=== PATIENT | female | born 1980 | race Caucasian/White ===

== ENCOUNTER 2017-01-31 09:50 | Day surgery (SDC) | payer BC ==
--- NOTE | ~2017-01-31 | EGD ---
EGD REPORT [facility] [address] [id number] NAME: JULEE SANCHEZ : [birth year] STATUS : REG [facility]#: [id number] AGE: 36 ADM/REG DATE : 01/31/17 MR#: [id number] REPORT SERV DATE: 01/31/17 DICTATED BY: ANJUM CANO DATE: 01/31/17 REPORT STATUS : Draft TRANSCRIBED BY: [facility] DATE: 01/31/17 [facility] Patient Name: Julee Sanchez Date of : 1980 Attending MD: ANJUM CANO MD Procedure Date No Time: 01/31/2017 Procedure: Upper GI endoscopy Indications: Dysphagia, Gastro-esophageal reflux disease Referring MD: Khushi Mittal MD Medicines: Propofol per Anesthesia Complications: Hypoxia, Treated by Anesthesia, With resolution of the hypoxia Procedure: Pre-Anesthesia Assessment: - ASA Grade Assessment: III - A patient with severe systemic disease. After obtaining informed consent, the endoscope was passed under direct vision. Throughout the procedure, the patient's blood pressure, pulse, and oxygen saturations were monitored continuously. The GIF [id number] was introduced through the mouth, and advanced to the third part of duodenum. The upper GI endoscopy was accomplished without difficulty. The patient tolerated the procedure well. Findings: LA Grade A (one or more mucosal breaks less than 5 mm, not extending between tops of 2 mucosal folds) esophagitis was found in the entire esophagus. A benign-appearing, intrinsic mild stenosis was found in the upper third of the esophagus and was traversed. A guidewire was placed and the scope was withdrawn. Dilation was performed with a Savary dilator with mild resistance at 60 Fr. The esophagus looked satisfactory post dilation A small hiatus hernia was present. Seen on retroflexion, done prior to dilation Diffuse mild inflammation characterized by congestion (edema) and erythema was found in the entire examined stomach. Biopsies were taken with a cold forceps for Helicobacter pylori testing. Diffuse moderate inflammation characterized by congestion (edema), erosions and erythema was found in the duodenal bulb and in the second part of the duodenum. Biopsies were taken with a cold forceps for evaluation of celiac disease. And giardia, whipple's disease, and enteritis The 3rd part of the duodenum was normal. Biopsies were taken with a cold forceps for evaluation of celiac disease. And giardia, whipple's disease, and enteritis EGD REPORT [address] [place]. [address] NAME: JULEE SANCHEZ : [birth year] STATUS : REG [facility] [place] PAT#: [id number] AGE: 36 ADM/REG DATE : 01/31/17 MR#: [id number] REPORT SERV DATE: 01/31/17 DICTATED BY: ANJUM CANO DATE: 01/31/17 REPORT STATUS : Draft TRANSCRIBED BY: [employer] DATE: 01/31/17 Impression: - LA Grade A esophagitis. - Benign-appearing esophageal stricture. Dilated. - Hiatus hernia. - Gastritis. Biopsied. - Duodenitis. Biopsied. - Normal 3rd part of the duodenum. Biopsied. Recommendation: - Patient has a contact number available for emergencies. The signs and symptoms of potential delayed complications were discussed with the patient. Return to normal activities tomorrow. Written discharge instructions were provided to the patient. - diet is clear liquid today, full liquid tomorrow, soft mushy food the next day, and resume usual diet the day after that. - Continue present medications. - Use Protonix (pantoprazole) 40 mg PO daily. - take 30-60 minutes before breakfast or supper - Use sucralfate suspension 1 gram PO QID. - Return to my office as previously scheduled. - Discharge patient to home. Procedure Code(s): --- Professional --- 70563, Esophagogastroduodenoscopy, flexible, transoral; with insertion of guide wire followed by passage of dilator(s) through esophagus over guide wire 03624, Esophagogastroduodenoscopy, flexible, transoral; with biopsy, single or multiple Diagnosis Code(s): --- Professional --- K20.9, Esophagitis, unspecified K22.2, Esophageal obstruction K44.9, Diaphragmatic hernia without obstruction or gangrene K29.70, Gastritis, unspecified, without bleeding K29.80, Duodenitis without bleeding R13.10, Dysphagia, unspecified K21.9, Gastro-esophageal reflux disease without esophagitis R09.01, Asphyxia CPT copyright 2013 [employer]. All rights reserved. The codes documented in this report are preliminary and upon arch cushion skiving machine operator review may be revised to meet current compliance requirements. EGD REPORT [facility] [address] [address] NAME: JULEE SANCHEZ : [birth year] STATUS : REG [facility] [place] PAT#: [id number] AGE: 36 ADM/REG DATE : 01/31/17 MR#: [id number] REPORT SERV DATE: 01/31/17 DICTATED BY: ANJUM CANO DATE: 01/31/17 REPORT STATUS : Draft TRANSCRIBED BY: [employer] DATE: 01/31/17 Anjum Cano MD ANJUM CANO MD 01/31/2017 1:37 PM This report has been signed electronically. Number of Addenda: 0 Note Initiated On: 01/31/2017 12:15 PM Scope Withdrawal Time 0 hours 0 minutes 0 seconds [address] [facility] [place] [address]
[~2017-01-31 09:50] MED LIST: ADVAIR115P INH; CYMBALTA60 PO; GLUCPH PO; LOTE10 PO; METHOC750B PO; PR25 PO; SINGULAIR1 PO; T3 PO; TOPXL50 PO; TRAZ100 PO; [UNRECOGNIZED DRUG - OTHER] INH
== END 2017-01-31 23:59 | disposition home health service (06) ==
LOC: DMU 09:50
PROVIDERS: Internal Medicine Gastroenterology
PROC: 0DB98ZX Excision of Duodenum, Via Natural or Artificial Opening Endoscopic, Diagnostic (ICD-10-PCS; 2017-01-31)
PROC: 0D758ZZ Dilation of Esophagus, Via Natural or Artificial Opening Endoscopic (ICD-10-PCS; principal; 2017-01-31 11:00)
PROC: 0DB68ZX Excision of Stomach, Via Natural or Artificial Opening Endoscopic, Diagnostic (ICD-10-PCS; 2017-01-31 11:00)
DX: K22.2 Esophageal obstruction (principal); K44.9 Diaphragmatic hernia without obstruction or gangrene; K21.0 Gastro-esophageal reflux disease with esophagitis; K29.70 Gastritis, unspecified, without bleeding; K29.80 Duodenitis without bleeding; I10 Essential (primary) hypertension; G47.33 Obstructive sleep apnea (adult) (pediatric); R56.9 Unspecified convulsions; F41.9 Anxiety disorder, unspecified; F32.9 Major depressive disorder, single episode, unspecified; Z88.8 Allergy status to other drugs, medicaments and biological substances; Z79.899 Other long term (current) drug therapy; J45.909 Unspecified asthma, uncomplicated; Z90.49 Acquired absence of other specified parts of digestive tract; Z90.710 Acquired absence of both cervix and uterus; Z98.51 Tubal ligation status; Z98.890 Other specified postprocedural states
CPT/HCPCS: 82962; 88305; 94640; A9270-GY; J0330; J2405; J3010

== ENCOUNTER 2017-02-01 16:43 | Emergency (ER) | payer BC ==
[2017-02-01 16:00] LABS: BASOPHILS 0.2 %; BASOPHILS ABSOLUTE 0.02 10/3/uL (0.0-0.16); EOSINOPHILS 3.3 %; EOSINOPHILS ABSOLUTE 0.29 10/3/uL (0.0-0.53); IMMATURE GRANULOCYTES 0.2 %; IMMATURE GRANULOCYTES ABSOLUTE 0.02 10/3/uL (0.0-0.11); LYMPHOCYTES ABSOLUTE 1.95 10/3/uL (0.67-4.30); MEAN CORPUS HGB CONC 32.9 g/dL (32.0-36.0); MEAN CORPUSCULAR HEMOGLOB 29.3 pg (26.0-34.0); MEAN CORPUSCULAR VOLUME 88.9 fL (80-100); MEAN PLATELET VOLUME 9.8 fL (9.2-13.0); MONOCYTES 5.1 %; MONOCYTES ABSOLUTE 0.45 10/3/uL (0.21-1.20); NEUTROPHILS 69.2 %; NEUTROPHILS ABSOLUTE 6.14 10/3/uL (2.02-8.40); PLATELET COUNT 247 10/3/uL (150-400); RBC DISTRIBUTION WIDTH 13.8 % (12.0-16.0)
[2017-02-01 16:01] LABS: ER CBC TAT 0 Hrs 05 Mins; HEMATOCRIT 41.6 % (36.0-48.0); HEMOGLOBIN 13.7 g/dL (12.0-16.0); MANUAL DIFF NO %; RED CELL COUNT 4.68 10/6/uL (4.0-5.6); WHITE BLOOD CELLS 8.9 10/3/uL (4.5-10.5)
[2017-02-01 16:12] LABS: BUN (BLOOD UREA NITROGEN) 7 MG/DL (6-23); CALCIUM, SERUM 8.6 MG/DL (8.5-10.4); CHLORIDE, SERUM 105 MMOL/L (96-112); CO2 (CARBON DIOXIDE) 34 MMOL/L (24-34); GFR AFRICAN AMERICAN 137 ML/MIN (>=60); GFR NON AFRICAN AMERICAN 118 ML/MIN (>=60); GLUCOSE, SERUM 79 MG/DL (60-99); POTASSIUM, SERUM 3.6 MMOL/L (3.5-5.3); SODIUM, SERUM 141 MMOL/L (135-148)
== END 2017-02-01 17:44 | disposition home or self-care (01) ==
LOC: ER 16:43
PROVIDERS: Physician Assistant
DX: J18.9 Pneumonia, unspecified organism (principal); I10 Essential (primary) hypertension; G47.30 Sleep apnea, unspecified; J45.909 Unspecified asthma, uncomplicated; Z88.0 Allergy status to penicillin; Z88.1 Allergy status to other antibiotic agents; Z88.8 Allergy status to other drugs, medicaments and biological substances; Z88.6 Allergy status to analgesic agent; Z79.84 Long term (current) use of oral hypoglycemic drugs; Z79.899 Other long term (current) drug therapy
CPT/HCPCS: 71020; 80048; 85025; 87040; 96374; 99285; A9270-GY

== ENCOUNTER 2017-02-12 17:31 | Emergency (ER) | payer BC | END 2017-02-12 17:50 | disposition home or self-care (01) | LOC: ER 17:31 | DX: R51 Headache (principal); J45.909 Unspecified asthma, uncomplicated; I10 Essential (primary) hypertension; F32.9 Major depressive disorder, single episode, unspecified; F41.9 Anxiety disorder, unspecified; Z88.0 Allergy status to penicillin; Z88.1 Allergy status to other antibiotic agents; Z88.5 Allergy status to narcotic agent; Z91.040 Latex allergy status; Z79.84 Long term (current) use of oral hypoglycemic drugs | CPT/HCPCS: 96372; 99283; J1200; J1885; J2550 ==